=== PATIENT | female | born 1995 | race Caucasian/White ===

== ENCOUNTER 2020-12-24 11:45 | Emergency (ER) | payer MEDICAID ==
[~2020-12-24 11:45] MED LIST: FIBE1TAB5 PO
[2020-12-24] MEDS ORDERED: normal saline 1000ml 1,000 ML IV ONE (13:20)
[2020-12-24 13:40] LABS: CLARITY,URINE CLEAR (Clear); COLOR,URINE STRAW (Yellow); GLUCOSE, URINE NEGATIVE (Neg); KETONES,URINE NEGATIVE (Neg); LEUKOCYTE ESTERASE ,URINE NEGATIVE (Neg); NITRITES, URINE NEGATIVE (Neg); OCCULT BLOOD,URINE NEGATIVE (Neg); PH,URINE 7.5 (4.8-8.0); PROTEIN,URINE NEGATIVE (Neg); UROBILINOGEN,URINE 0.2 E.U/dL (0.2-1.0)
[2020-12-24 13:41] LABS: URINE HCG NEGATIVE (NEG)
[2020-12-24 13:42] LABS: BASOPHILS # (AUTO) 0.1 X10'3 (0-0.2); BASOPHILS % (AUTO) 0.7 % (0-1); EOSINOPHILS # (AUTO) 0.1 X10'3 (0-0.9); EOSINOPHILS % (AUTO) 1.9 % (0-6); HEMOGLOBIN 12.7 g/dl (12.0-16.0); LYMPHOCYTES # (AUTO) 1.6 X10'3 (1.1-4.8); LYMPHOCYTES % (AUTO) 22.2 % (21-51); MEAN CORPUSCULAR HGB CONC 33.4 g/dL (33.0-36.5); MEAN CORPUSCULAR VOLUME 89.9 FL (78-98); MEAN PLATELET VOLUME 8.4 FL (7.4-10.4); MONOCYTES # (AUTO) 0.5 X10'3 (0-0.9); MONOCYTES % (AUTO) 7.4 % (2-12); NEUTROPHILS # (AUTO) 4.9 X10'3 (1.8-7.7); NEUTROPHILS % (AUTO) 67.8 % (42-75); PLATELET COUNT 250 X10'3 (140-440); RED BLOOD COUNT 4.23 X10'6 (4.20-5.60); RED CELL DISTRIBUTION WIDTH 12.9 % (11.5-14.5); WHITE BLOOD COUNT 7.2 X10'3 (4.5-11.0)
[2020-12-24 13:51] LABS: UA COLLECTION TYPE CLN CATCH MIDSTREAM
[2020-12-24 13:53] LABS: ALANINE AMINOTRANSFERASE 21 U/L (12-78); ALBUMIN 4.5 G/DL (3.4-5.0); ALBUMIN/GLOBULIN RATIO 1.4 (1.1-1.5); ALKALINE PHOSPHATASE 50 IU/L (46-116); ANION GAP 10 (8-16); ASPARTATE AMINO TRANSFERASE 16 U/L (10-37); BILIRUBIN,TOTAL 0.4 MG/DL (0.1-1.0); BLOOD UREA NITROGEN 7 MG/DL (7-18); BUN/CREATININE RATIO 13.2 (6.6-38.0); CALCIUM 9.1 MG/DL (8.5-10.1); CHLORIDE 105 MMOL/L (99-107); CREATININE 0.53 MG/DL (0.40-0.90); GLUCOSE 91 MG/DL (70-104); LIPASE 113 U/L (73-393); SODIUM 142 MMOL/L (135-145); TOTAL CARBON DIOXIDE 26.9 MMOL/L (24-32); TOTAL PROTEIN 7.8 G/DL (6.4-8.2); eGFR > 90 ML/MIN
[2020-12-24 14:47] VITALS: BP 112/68
== END 2020-12-24 14:49 | disposition home or self-care (01) ==
LOC: ER 11:47
DX: R42 Dizziness and giddiness (principal); R53.1 Weakness; Z79.899 Other long term (current) drug therapy; Z79.4 Long term (current) use of insulin
CPT/HCPCS: 36415; 80053; 81003; 81025; 82948; 83690; 85025; 93005; 96360; 99284; J7030

== ENCOUNTER 2024-02-17 01:16 | Emergency (ER) | payer MEDICAID ==
[~2024-02-17] VITALS: Ht 160 cm; Wt 50.0 kg
[2024-02-17] MEDS: propofol 10mg/ml 20ml vial IV ONE (01:55)
[2024-02-17] MEDS ORDERED: CEPH-585 PO (02:41)
[2024-02-17] MEDS ORDERED: HYDR-3965 PO (02:41)
[2024-02-17] MEDS: LIDOcaine 1% 30ml preserv. free vial IJ ONE (02:58)
[2024-02-17] MEDS: normal saline 1000ml 1,000 ML IV ONE (02:59)
[2024-02-17] MEDS: ceFAZolin/D5W- 1GM premix 50 ML IV ONE (03:03)
[2024-02-17] MEDS ORDERED: ketorolac trometh. 30mg/ml inj. IV ONE (03:50)
[2024-02-17] MEDS: ketorolac tromethamine 15mg/ml inj. IV ONE (03:55)
[2024-02-17] MEDS: HYDROcodone/acetaminophen 5mg/325mg tablet PO ONE (05:48)
[2024-02-17 07:24] VITALS: BP 112/84; PULSE 88; RESP 16; TEMP 98.3; O2SAT 96
== END 2024-02-17 07:25 | disposition home or self-care (01) ==
LOC: ER 01:17
DX: S61.212A Laceration without foreign body of right middle finger without damage to nail, initial encounter (principal); S63.283A Dislocation of proximal interphalangeal joint of left middle finger, initial encounter; Z79.2 Long term (current) use of antibiotics; Z79.84 Long term (current) use of oral hypoglycemic drugs; X58.XXXA Exposure to other specified factors, initial encounter; Y93.89 Activity, other specified; Y92.89 Other specified places as the place of occurrence of the external cause; Y99.8 Other external cause status
CPT/HCPCS: 12002; 26770; 73130; 96365; 96375; 99152; 99153; 99285; J0690; J1885; J7030; 99291; A6446

== ENCOUNTER 2024-03-07 10:27 | Emergency (ER) | payer MEDICAID ==
[~2024-03-07] VITALS: Ht 162.6 cm; Wt 48.6 kg
[~2024-03-07 10:27] MED LIST changes: +HYDR-3965 PO
[2024-03-07 10:35] VITALS: TEMP 99.1
[2024-03-07 11:09] LABS: BASOPHILS % (AUTO) 0.4 % (0-1); EOSINOPHILS # (AUTO) 0.1 X10'3 (0-0.9); HEMATOCRIT 43.7 % (35.0-45.0); HEMOGLOBIN 14.6 g/dl (12.0-16.0); LYMPHOCYTES % (AUTO) 14.6 % (21-51); MEAN CORPUSCULAR HEMOGLOBIN 31.3 PG (27.0-31.0); MEAN CORPUSCULAR HGB CONC 33.4 g/dL (33.0-36.5); MEAN CORPUSCULAR VOLUME 93.6 FL (78-98); MEAN PLATELET VOLUME 7.8 FL (7.4-10.4); MONOCYTES # (AUTO) 1.1 X10'3 (0-0.9); MONOCYTES % (AUTO) 8.1 % (2-12); NEUTROPHILS # (AUTO) 10.6 X10'3 (1.8-7.7); NEUTROPHILS % (AUTO) 75.9 % (42-75); PLATELET COUNT 374 X10'3 (140-440); RED BLOOD COUNT 4.67 X10'6 (4.20-5.60); RED CELL DISTRIBUTION WIDTH 13.1 % (11.5-14.5)
[2024-03-07 11:18] LABS: ALBUMIN 4.6 G/DL (3.4-5.0); ANION GAP 12 (8-16); BLOOD UREA NITROGEN 4 MG/DL (7-18); BUN/CREATININE RATIO 5.4 (10.0-20.0); CALCIUM 9.8 MG/DL (8.5-10.1); CHLORIDE 101 MMOL/L (99-107); CREATININE 0.74 MG/DL (0.40-0.90); GLUCOSE 98 MG/DL (70-104); POTASSIUM 3.2 MMOL/L (3.5-5.1); SODIUM 138 MMOL/L (135-145); TOTAL CARBON DIOXIDE 25.4 MMOL/L (24-32); eCRCL 87 ML/MIN; eGFR > 90 ML/MIN
[2024-03-07] MEDS: LIDOcaine 1% 30ml preserv. free vial IJ ONE (12:40)
[2024-03-07] MEDS ORDERED: ketorolac trometh. 30mg/ml inj. IV ONE (13:15)
[2024-03-07] MEDS: piperacillin/tazo 3.375gm/50ml 50 ML IV ONE (13:39)
[2024-03-07] MEDS: probenecid 500mg tablet PO ONE (13:39)
[2024-03-07] MEDS: sulfamethoxazole/trimethoprim DS (800/160mg) tablet PO ONE (13:39)
[2024-03-07] MEDS: ketorolac tromethamine 15mg/ml inj. IV ONE (13:39)
[2024-03-07] MEDS: normal saline 1000ML IV soln IVB ONE (13:39)
[2024-03-07] MEDS ORDERED: SULF1TAB45 PO (14:21)
[2024-03-07] MEDS ORDERED: CEPH-585 PO (14:21)
[2024-03-07 15:44] VITALS: BP 112/88; PULSE 77; RESP 18; O2SAT 98
== END 2024-03-07 15:46 | disposition home or self-care (01) ==
LOC: ER 10:28
DX: L03.113 Cellulitis of right upper limb (principal); Z79.2 Long term (current) use of antibiotics; Z79.84 Long term (current) use of oral hypoglycemic drugs; Z79.899 Other long term (current) drug therapy
CPT/HCPCS: 36415; 73140; 80048; 83605; 84145; 85025; 87040; 96365; 96375; 99285; J1885; J2543; J7030; A6258; A6449

== ENCOUNTER 2024-10-14 07:00 | Day surgery (SDC) | payer MEDICAID ==
[2024-10-10 11:20] LABS: BASOPHILS % (AUTO) 0.6 % (0-1); EOSINOPHILS # (AUTO) 0.1 X10'3 (0-0.9); EOSINOPHILS % (AUTO) 1.8 % (0-6); LYMPHOCYTES # (AUTO) 1.6 X10'3 (1.1-4.8); LYMPHOCYTES % (AUTO) 29.2 % (21-51); MEAN CORPUSCULAR HEMOGLOBIN 31.7 PG (27.0-31.0); MEAN CORPUSCULAR HGB CONC 33.9 g/dL (33.0-36.5); MEAN CORPUSCULAR VOLUME 93.5 FL (78-98); MEAN PLATELET VOLUME 7.5 FL (7.4-10.4); MONOCYTES # (AUTO) 0.6 X10'3 (0-0.9); MONOCYTES % (AUTO) 11.1 % (2-12); NEUTROPHILS % (AUTO) 57.3 % (42-75); PRE OP HEMATOCRIT 38.2 % (35.0-45.0); PRE OP HEMOGLOBIN 12.9 g/dL (12.0-16.0); PRE OP PLATELET COUNT 247 X10'3 (140-440); PRE OP WHITE BLOOD COUNT 5.3 10'3 (4.8-10.8); RED BLOOD COUNT 4.09 X10'6 (4.20-5.60); RED CELL DISTRIBUTION WIDTH 13.6 % (11.5-14.5)
[2024-10-10 11:36] LABS: ALBUMIN 4.1 G/DL (3.4-5.0); ALBUMIN/GLOBULIN RATIO 1.3 (1.1-1.5); ALKALINE PHOSPHATASE 53 IU/L (46-116); BLOOD UREA NITROGEN 8 MG/DL (7-18); BUN/CREATININE RATIO 11.4 (10.0-20.0); CALCIUM 9.1 MG/DL (8.5-10.1); CHLORIDE 105 MMOL/L (99-107); PRE OP ALT 26 U/L (30-65); PRE OP ANION GAP 4 (8-16); PRE OP AST 40 U/L (10-37); PRE OP BILIRUB, TOTAL 0.3 MG/DL (0.0-1.0); PRE OP GLUCOSE 90 MG/DL (70-104); PRE OP POTASSIUM 4.1 MMOL/L (3.4-5.1); PRE OP SODIUM 138 MMOL/L (135-145); TOTAL PROTEIN 7.3 G/DL (6.4-8.2); eGFR > 90 ML/MIN
[2024-10-10 12:06] LABS: HCG SERUM QL NEGATIVE
[2024-10-14] VITALS (7 sets, daily range): BP systolic 108–118; BP diastolic 70–76; PULSE 63–76; RESP 12–18; TEMP 99.1; O2SAT 96–100
[~2024-10-14] VITALS: Ht 160 cm; Wt 53.8 kg
[~2024-10-14 07:00] MED LIST changes: -FIBE1TAB5 PO; -HYDR-3965 PO; +NO HOME MEDS
[2024-10-14] MEDS: ringers solution, lacted 1,000 ML IV SCH (08:19)
[2024-10-14] MEDS: famotidine 20mg tablet PO ONE (08:19)
[2024-10-14] MEDS: ceFAZolin 2gm in dextrose, iso 50 ML IV ONE (08:19)
[2024-10-14] MEDS ORDERED: LIDOcaine 1% (10mg/ml) 2ml vial ONE (08:29)
[2024-10-14] MEDS ORDERED: BUPIVAcaine/PF 2.5mg/ml (0.25%) 10ml vial ONE (08:39)
[2024-10-14] MEDS ORDERED: fentaNYL/PF 50MCG/1 ML 2ML syringe ONE (08:45)
[2024-10-14] MEDS ORDERED: MIDAZolam 1 MG/ML 5ML VIAL ONE (08:46)
[2024-10-14] MEDS ORDERED: LIDOcaine 2% (20mg/ml) 5ml vial ONE ×2 (08:58→09:23)
[2024-10-14] MEDS ORDERED: propofol inj 20 ML IV ONE (09:23)
== END 2024-10-14 10:20 | disposition home or self-care (01) ==
LOC: PAS 07:00
PROVIDERS: ATTEND Orthopaedic Surgery Hand Surgery
DX: M20.021 Boutonniere deformity of right finger(s) (principal); S61.411A Laceration without foreign body of right hand, initial encounter; S66.821A Laceration of other specified muscles, fascia and tendons at wrist and hand level, right hand, initial encounter; X58.XXXA Exposure to other specified factors, initial encounter; Y93.89 Activity, other specified; Z79.899 Other long term (current) drug therapy; Z98.890 Other specified postprocedural states; Y92.89 Other specified places as the place of occurrence of the external cause; Y99.8 Other external cause status
CPT/HCPCS: 26426; 36415; 80053; 82948; 84703; 85025; J0690; J2003; J2250; J2704; J3010; J3490; J7030; J7120; Z7506; Z7512; A4215; A4618; A6449; A7000